=== PATIENT | female | born 1940 | race Caucasian/White ===

== ENCOUNTER 2017-07-19 12:59 | Outpatient (CLI) | payer OTHER ==
[2015-02-27 11:58] VITALS: BMI 36.9
[2017-07-19] MEDS ORDERED: RECLAST 5 MG/100 ML SOLUTION 5 MG in PREMIX INFUSION 100 ML VIAL 1 VIAL IV ONE (14:12)
[2017-07-19 14:20] VITALS: TEMP 96.5
== END 2017-07-19 13:00 | disposition home or self-care (01) ==
LOC: OPMED 12:59
PROVIDERS: ATTEND Nurse Practitioner Family
DX: M81.0 Age-related osteoporosis without current pathological fracture (principal)
CPT/HCPCS: 96365